=== PATIENT | male | born 1960 | race American Indian/Alaskan Native ===

== ENCOUNTER 2018-03-22 19:22 | Emergency (ER) | payer OTHER ==
[2018-03-22] MEDS ORDERED: NACL 0.9% 1000 ML 1,000 ML IV ONE (19:35)
--- NOTE | 2018-03-22 19:45 | Emergency Department Report ---
ED Syncope HPI - General Chief Complaint: Dizziness Stated Complaint: SYNCOPE Time Seen by Provider: 03/22/18 19:33 Source: patient, family, EMS, old records - History of Present Illness Initial Comments: Mr. Carrillo is a 58-year-old male who presents per EMS for syncope. His informed EMS that upon standing he passed out. Mr. Carrillo has had poor by mouth intake for the last 2 months. He is being evaluated for persistent sore throat and throat mass per ENT. He's had difficulty swallowing any type of food. Food actually get stuck in his throat. He does admit to decreased hydration. Endoscopy performed by ENT revealed throat mass. He has been scheduled for throat biopsy. He has mild shortness of breath. He is a smoker. Otherwise no other medical history. He is followed by [facility] in [place]. He is also been closely evaluated by ear nose and throat surgeon. also reported to EMS that Mr. Carrillo has had recurrent syncope. Timing/Prior Episodes: recent history Precipitating Factors: Positive: lightheadedness Context: standing Loss of Consciousness: brief (seconds) Current Symptoms: dizziness - Related Data Allergies/Adverse Reactions: Allergies Penicillins Allergy (Verified 04/24/16 01:03) Unknown Home Medications: Ambulatory Orders Diclofenac Sodium 75 mg PO BID #20 tablet. 04/24/16 traMADol [Ultram] 50 mg PO Q6HR PRN #12 tablet 04/24/16 ED Review of Systems ROS: Stated complaint: SYNCOPE Other details as noted in HPI Comment: All other systems reviewed and negative Constitutional: malaise. denies: fever Respiratory: shortness of breath. denies: cough Cardiovascular: denies: chest pain, palpitations ED Past Medical Hx - Past Medical History Previous Medical History?: Yes Additional medical history: Psorasis - Surgical History Past Surgical History?: No Additional Surgical History: pt denies - Social History Smoking Status: Current Every Day Smoker Substance Use Type: Alcohol - Medications Home Medications: Home Medications Medication Instructions Recorded Confirmed Last Taken Type Diclofenac Sodium 75 mg PO BID #20 tablet. 04/24/16 Unknown Rx traMADol [Ultram] 50 mg PO Q6HR PRN #12 tablet 04/24/16 Unknown Rx ED Physical Exam - General Limitations: No Limitations General appearance: alert, in no apparent distress - Head Head exam: Present: atraumatic, normocephalic - Eye Eye exam: Present: normal appearance - ENT ENT exam: Present: mucous membranes moist - Neck Neck exam: Present: normal inspection. Absent: tenderness, meningismus - Respiratory Respiratory exam: Present: normal lung sounds bilaterally. Absent: respiratory distress, wheezes, rales, rhonchi - Cardiovascular Cardiovascular Exam: Present: regular rate, normal rhythm, other (distant heart sounds). Absent: systolic murmur, diastolic murmur, rubs, gallop - GI/Abdominal GI/Abdominal exam: Present: soft, normal bowel sounds. Absent: distended, tenderness, guarding, rebound - Rectal Rectal exam: Present: deferred - Extremities Exam Extremities exam: Present: normal inspection - Back Exam Back exam: Present: normal inspection - Neurological Exam Neurological exam: Present: alert, oriented X3 - Psychiatric Psychiatric exam: Present: normal affect, normal mood - Skin Skin exam: Present: warm, dry, intact, normal color, other (psoriatic skin lesions scalp upper torso). Absent: rash ED Course Vital Signs 03/22/18 03/22/18 03/22/18 19:33 19:53 20:00 Temperature 98.0 F Pulse Rate 110 H 75 Respiratory 18 15 19 Rate Blood Pressure 114/76 107/71 O2 Sat by Pulse 96 96 Oximetry 03/22/18 03/22/18 03/22/18 20:15 20:30 20:45 Temperature Pulse Rate 76 76 76 Respiratory 20 16 19 Rate Blood Pressure 110/75 107/73 107/72 O2 Sat by Pulse 98 95 96 Oximetry ED Medical Decision Making - Lab Data Result diagrams: 03/22/18 19:41 03/22/18 19:41 - EKG Data 03/22/18 19:41 EKG obtained 193 Normal sinus rhythm rate 90 beats a minute normal axis normal intervals ST elevation 1-2 mm in leads 2,3,aVF V4 V5 and V6 with SD depression in the infer ior leads - Radiology Data Radiology results: report reviewed interpreted by me: AP portable chest view: No acute process normal cardiac stool at CT angio chest Multiple pulmonary emboli - Medical Decision Making I reviewed transmitted EKG alongside my colleague. We both agreed that CODE STEMI should be activated. My colleague spoke with Dr. Marshall blasting entry specialist who reviewed the EKG. Considering patient did not have any chest pain at this time, Dr. Marshall recommended that code STEMI be canceled. Upon arrival, with history and physical exam, pericarditis would be more likely then acute coronary syndrome/STEMI. Dr. Marshall was updated and recommended CT angio of the chest. CT angiogram positive for multiple pulmonary emboli. I spoke with Dr. Hernández radiologist regarding findings. I also asked her to evaluate pericardium. No indication of pericardial effusion or cardiomegaly. According to Dr. Hernández, no evidence of heart strain. EKG pattern suggestive of acute pericarditis. However patient does not have chest pain or pericardial effusion. I spoke with [facility] physician Dr. Zamora who accepted the patient in transfer to [facility]. Dr. Holbrook will be the treating physician. I did review CBC chemistry troponin BNP all within normal limits with exception of mild metabolic acidosis anion gap presumed to be due to volume contraction ketosis. He received IV fluid therapy. Given the first dose Lovenox here in the ED. Awaiting transport to [facility]. With history of throat mass and now pulmonary emboli, I am concerned for undiagnosed malignancy. Critical Care Time: Yes Critical care time in (mins) excluding proc time.: 40 Critical care attestation.: If time is entered above; I have spent that time in minutes in the direct care of this critically ill patient, excluding procedure time. 40 minutes of critical care time excluding procedures were used in the care of the patient. Patient required multiple assessments and interventions. I reviewed the electronic medical record. I spoke with consultants involved in the care of the patient. ED Disposition Clinical Impression: Pulmonary emboli, Recurrent syncope, Orthostasis, Dehydration, Throat mass Disposition: DC/TX-[id number] ANOTHER TYPE HLTHCARE Is pt being admited?: No Does the pt Need Aspirin: No Condition: Stable
[2018-03-22 19:54] LABS: Basophils % (Auto) 0.6 % (0.0-1.8); Eosinophils % (Auto) 0.3 % (0.0-4.3); Hematocrit 42.1 % (35.5-45.6); Lymphocytes # (Auto) 2.9 K/mm3 (1.2-5.4); Lymphocytes % (Auto) 34.9 % (13.4-35.0); Mean Corpuscular HGB Conc 33 % (32-34); Mean Corpuscular Volume 99 fl (84-94); Monocytes # (Auto) 0.7 K/mm3 (0.0-0.8); Monocytes % (Auto) 8.6 % (0.0-7.3); Platelet Count 289 K/mm3 (140-440); Red Blood Count 4.28 M/mm3 (3.65-5.03); Red Cell Distribution Width 13.3 % (13.2-15.2)
[2018-03-22 20:29] LABS: Alanine Aminotransferase 10 units/L (7-56); Albumin 3.4 g/dL (3.9-5); BUN/Creatinine Ratio 7; Blood Urea Nitrogen 8 mg/dL (9-20); Calcium 9.4 mg/dL (8.4-10.2); Hemolysis Index 11
--- NOTE | 2018-03-22 20:43 | XRay Report ---
FINAL REPORT PROCEDURE: XR CHEST 1V AP TECHNIQUE: Chest radiograph anteroposterior view. CPT 95894 HISTORY: dyspnea COMPARISON: No prior studies are available for comparison. FINDINGS: Heart: Normal. Mediastinum/Vessels: Normal. Lungs/Pleural space: No infiltrate, effusion, or pneumothorax. Bony thorax: No acute osseous abnormality. Life support devices: None. IMPRESSION: No radiographic evidence of acute cardiopulmonary abnormality.
[2018-03-22] MEDS ORDERED: MOTRIN PO ONE (21:53)
--- NOTE | 2018-03-22 22:03 | Cat Scan Report ---
FINAL REPORT PROCEDURE: CT ANGIO CHEST TECHNIQUE: Computerized tomographic angiography of the chest was performed after the IV injection of iodinated nonionic contrast including image processing. The image data was postprocessed using 2-dim ensional multiplanar reformatted (MPR) and 3-dimensional (MIP and/or volume rendered) techniques. HISTORY: syncope COMPARISON: No prior studies are available for comparison. FINDINGS: Heart and pericardium: No pericardial effusion or thickening. Thoracic aorta: No aneurysm or dissection. Pulmonary vasculature: There is linear filling defect within proximal left lower lobe pulmonary arter ial branches, compatible with emboli. There is likely a small embolus within a mid right lower lobe p ulmonary arterial branch.. Lymph nodes: No enlarged thoracic lymph nodes. Lungs: Normal. Pleural space: No effusion, thickening, or pneumothorax. Musculoskeletal structures: No significant abnormality. Upper abdominal structures: No significant abnormality. IMPRESSION: Pulmonary embolus is seen within a proximal left lower lobe pulmonary arterial branch. There is also likely a small embolus within a mid right lower lobe pulmonary arterial branch
[2018-03-22] MEDS ORDERED: LOVENOX SUB-Q ONE (22:32)
[2018-03-22 23:50] VITALS: BP 116/77
== END 2018-03-22 23:46 | disposition other institution (70) ==
LOC: ED 19:22
DX: E86.0 Dehydration (principal); I26.99 Other pulmonary embolism without acute cor pulmonale; R22.1 Localized swelling, mass and lump, neck; F17.200 Nicotine dependence, unspecified, uncomplicated; Z88.0 Allergy status to penicillin
CPT/HCPCS: 36415; 71045; 71275; 80053; 83880; 84484; 85025; 93005; 93010; 96360; 96372; 99291; J1650; J7030; Q9967